=== PATIENT | male | born 1965 | race African-American/Black ===

== ENCOUNTER 2016-11-23 18:28 | Emergency (ER) | payer OTHER ==
[2016-11-23 18:39] VITALS: BP 117/65; PULSE 91; TEMP 98.2; BMI 28.1
--- NOTE | 2016-11-23 20:36 | PDOC ---
History of Present Illness - History of Present Illness Initial Comments: 11/23/16 20:32 CHIEF COMPLAINT: laceration HISTORY OF PRESENT ILLNESS: 51 yo M with no known medical history presents to ED s/p fall. 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 He reports LOC for "a few seconds" but was able to get up and walk away from the fall. He denies any memory loss, nausea, vomiting, blurry vision, difficulty walking, weakness, or dizziness. He reports that he "had a little headache after the fall" but denies any headache now. Patient denies taking any anticoagulants or any other medications. 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 SURGICAL HISTORY: Denies ALLERGIES: No known drug allergies REVIEW OF SYSTEMS General/Constitutional: Denies fever or chills. Denies weakness, weight change. HEENT: Denies change in vision. Denies ear pain or discharge. Denies sore throat. Cardiovascular: Denies chest pain or shortness of breath. Respiratory: Denies cough, wheezing, or hemoptysis. Gastrointestinal: Denies nausea, vomiting, diarrhea. Genitourinary: Denies dysuria, frequency, or change in urination. Musculoskeletal: Denies joint or muscle swelling or pain. Denies neck or back pain. Skin: "I cut my face when I fell." Neurologic: Denies headache, vertigo, loss of consciousness, or loss of sensation. PHYSICAL EXAM General Appearance: Well-appearing, appropriately dressed. No apparent distress. HEENT: EOMI, PERRLA, normal ENT inspection, normal voice, TMs normal, pharynx normal. No conjunctival pallor. No photophobia, scleral icterus. Neck: Supple. Trachea midline. No tenderness, rigidity, carotid bruit, stridor , lymphadenopathy, or thyromegaly. Respiratory/Chest: Lungs CTAB. Cardiovascular: RRR. S1, S2. Gastrointestinal/Abdominal: Normal bowel sounds. Abdomen soft, non-distended. No tenderness or rebound tenderness. No organomegaly, pulsatile mass, guarding , hernia, hepatomegaly, splenomegaly. Lymphatic: No adenopathy, tenderness. Musculoskeletal/Extremities: Normal inspection. FROM of all extremities, normal capillary refill. Pelvis Stable. No CVA tenderness. No tenderness to extremities, pedal edema, swelling, erythema or deformity. Integumentary: 1 cm lac over L aspect of nasal bone. Superficial abrasion to R forehead, no bleeding, hematoma, or ecchymosis. Appropriate color, dry, warm. 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 Fully oriented, alert. Appropriate mood/affect. Motor strength 5/5. No appreciable EOM palsy, facial droop or sensory deficit. <Kristie Christine - Last Filed: 11/23/16 20:40> <Karli Ramirez - Last Filed: 11/24/16 06:40> - General Chief Complaint: Laceration Stated Complaint: LACERATION Time Seen by Provider: 11/23/16 19:46 Past History - Past Medical History Other medical history: DENIES. - Psycho/Social/Smoking Cessation Hx Suicidal Ideation: No Smoking Status: No Smoking History: Never smoked Number of Cigarettes Smoked Daily: 0 <Kristie Christine - Last Filed: 11/23/16 20:40> <Karli Ramirez - Last Filed: 11/24/16 06:40> - Past Medical History Allergies/Adverse Reactions: Allergies Allergy/AdvReac Type Severity Reaction Status Date / Time No Known Allergies Allergy Verified 11/23/16 18:35 Home Medications: Ambulatory Orders No Home Medications 0 dose .ROUTE UTDICT 02/17/12 Ibuprofen 600 mg PO TID PRN #21 tablet 11/23/16 *Physical Exam - Vital Signs Last Vital Signs Temp Pulse Resp BP Pulse Ox 98.2 F 91 H 19 117/65 98 11/23/16 18:35 11/23/16 18:35 11/23/16 18:35 11/23/16 18:35 11/23/16 18:35 <Kristie Christine - Last Filed: 11/23/16 20:40> - Vital Signs Last Vital Signs Temp Pulse Resp BP Pulse Ox 98.2 F 91 H 19 117/65 98 11/23/16 18:35 11/23/16 18:35 11/23/16 18:35 11/23/16 18:35 11/23/16 18:35 <Karli Ramirez - Last Filed: 11/24/16 06:40> Procedures - Laceration/Wound Repair Medial Proximal Nose Wound Length: to 2.5 cm Wound Explored: clean, no foreign body present Wound's Depth, Shape: superficial Irrigated w/ Saline: Yes Betadine Prep: Yes Anesthesia: 1% Lidocaine Amount of Anesthetic (ccs): 3 Suture Size/Type: 6:0 Number of Sutures: 3 (simple interrupted) Layer Closure: No <Karli Ramirez - Last Filed: 11/24/16 06:40> ED Treatment Course - Medications Given in the ED: ED Medications Discontinued Medications Generic Name Dose Route Start Last Admin Trade Name Freq PRN Reason Stop Dose Admin Diphtheria/Tetanus/Acell Pertussis 0.5 ml 11/23/16 20:39 11/23/16 20:42 Boostrix - IM 11/23/16 20:40 0.5 ml .ONCE ONE Administration <Karli Ramirez - Last Filed: 11/24/16 06:40> Medical Decision Making - Medical Decision Making 11/23/16 20:53 51 yo M with no known medical history presents to ED s/p fall. Per [place] head CT rule, no imaging indicated at this time. Tdap IM -Suture repair performed by MONICA Ramirez (see proc note) Advised patient to take medication as prescribed and to follow up with PCP within the next week. Advised patient of signs and symptoms for return to ER; patient verbalized understanding and agrees to plan. <Kristie Christine - Last Filed: 11/23/16 20:40> *DC/Admit/Observation/Transfer - Discharge Dispostion Admit: No <Kristie Christine - Last Filed: 11/23/16 20:40> <Karli Ramirez - Last Filed: 11/24/16 06:40> Diagnosis at time of Disposition: Laceration Fall Qualifiers: Encounter type: initial encounter Qualified Code(s): W19.XXXA - Unspecified fall, initial encounter - Discharge Dispostion Disposition: HOME Condition at time of disposition: Stable - Prescriptions Prescriptions: Ibuprofen 600 mg PO TID PRN #21 tablet PRN Reason: Pain - Patient Instructions Printed Discharge Instructions: DI for Laceration Repair Additional Instructions: Please keep area of suture repair clean and dry for the next 24-48 hours; afterwards you may wash with mild soap and water. Please return to fast track or to your primary care doctor in 5 days for suture removal. If you experience any redness, warmth, swelling, or streaking to the site of the suture repair, or you develop any fever, nausea, vomiting, diarrhea, chills, loss of memory, blurry vision, difficulty walking or speaking, weakness, or any new or worsening symptoms, please return to the ER immediately.
[2016-11-23] MEDS ORDERED: DIPHTH,PERTUSS(ACELL),TET 0.5 ML DISP.SYRIN IM ONE (20:39)
== END 2016-11-23 21:07 | disposition home or self-care (01) ==
LOC: JERFT 18:28
PROC: 3E0234Z Introduction of Serum, Toxoid and Vaccine into Muscle, Percutaneous Approach (ICD-10-PCS; principal; 2016-11-23)
PROC: 09QK3ZZ Repair Nasal Mucosa and Soft Tissue, Percutaneous Approach (ICD-10-PCS; 2016-11-23)
DX: S01.21XA Laceration without foreign body of nose, initial encounter (principal); S00.81XA Abrasion of other part of head, initial encounter; W01.0XXA Fall on same level from slipping, tripping and stumbling without subsequent striking against object, initial encounter; Y93.89 Activity, other specified; Y92.480 Sidewalk as the place of occurrence of the external cause; Y99.0 Civilian activity done for income or pay
CPT/HCPCS: 90715; 99281-25

== ENCOUNTER 2016-12-22 20:07 | Emergency (ER) | payer OTHER ==
[2016-12-22 20:11] VITALS: BP 120/60; PULSE 93; TEMP 97; BMI 27.6
--- NOTE | 2016-12-22 21:38 | PDOC ---
Suture Removal/Wound Check HPI - History of Present Illness Chief Complaint: Suture/Staple Removal(Here) Stated Complaint: SUTURE REMOVAL Time Seen by Provider: 12/22/16 21:36 History Source: Yes: Patient Exam Limitations: Yes: No Limitations [facility] Date of Last ED visit: 11/23/16 - Previous ED Treatment Type of procedure performed on last visit: Yes: Laceration Repair Tetanus Immunization: Yes: Up to Date Antibiotics Prescribed: No Past History - Past Medical History Allergies/Adverse Reactions: Allergies Allergy/AdvReac Type Severity Reaction Status Date / Time No Known Allergies Allergy Verified 12/22/16 20:11 Home Medications: Ambulatory Orders No Home Medications 0 dose .ROUTE UTDICT 02/17/12 Other medical history: denies - Suicide/Smoking/Psychosocial Hx Smoking Status: No Smoking History: Never smoked Number of Cigarettes Smoked Daily: 0 Suture Removal/Wound Check PE - Physical Exam Laceration/Wound Check Symptoms: reports: None Current Severity Level: None Maximum Severity Level: None Pain Localization: None *Review of Systems - Review of Systems Constitutional: No: Symptoms Reported Integumentary: No: Symptoms Reported, Erythema Neurological: No: Symptoms reported Hematologic/Lymphatic: No: Symptoms Reported All Other Systems: Reviewed and Negative Medical Decision Making - Medical Decision Making 12/22/16 21:40 3 sutures were removed without difficulty, there is no erythema edema, there is mild scarring noted to to the fact that sutures were left in over 1 month, he is aware and is currently satisfied with cosmesis. *DC/Admit/Observation/Transfer Diagnosis at time of Disposition: Visit for suture removal - Discharge Dispostion Disposition: HOME Condition at time of disposition: Good Admit: No - Patient Instructions Printed Discharge Instructions: DI for Suture Removal Additional Instructions: Follow up as needed
== END 2016-12-22 21:42 | disposition home or self-care (01) ==
LOC: JERFT 20:07
DX: Z48.02 Encounter for removal of sutures (principal)
CPT/HCPCS: 99281-25